=== PATIENT | male | born 1980 | race Caucasian/White ===

== ENCOUNTER 2019-03-13 17:33 | Emergency (ER) | payer OTHER | END 2019-03-13 18:12 | disposition home or self-care (01) | LOC: JERFT 17:33 ==

== ENCOUNTER 2021-04-05 23:07 | Emergency (ER) | payer OTHER ==
[2021-04-05 23:22] VITALS: BMI 26.6
[2021-04-06] MEDS ORDERED: ACETAMINOPHEN 325 MG TABLET (FP) PO ONE (00:15)
[2021-04-06] MEDS ORDERED: ACETAMINOPHEN 325 MG TABLET (FP) ONE (00:21)
[2021-04-06 03:19] VITALS: BP 124/74; PULSE 88; TEMP 98.1
== END 2021-04-06 03:20 | disposition home or self-care (01) ==
LOC: JER 23:07
DX: S00.03XA Contusion of scalp, initial encounter (principal); W25.XXXA Contact with sharp glass, initial encounter; Y92.9 Unspecified place or not applicable
CPT/HCPCS: 70450-TC; 71045-TC-FY; 72125-TC; 99284-25